=== PATIENT | female | born 1970 | race Caucasian/White ===

== ENCOUNTER 2017-01-07 19:10 | Emergency (ER) | payer BC ==
[~2017-01-07] VITALS: Ht 165.1 cm; Wt 108.5 kg
[~2017-01-07 19:10] MED LIST: CLR10 PO; IBUP-1050 PO; TRIA1SPR4 NAE
[2017-01-07 19:13] VITALS: TEMP 36.9; Ht 165.1 cm; Wt 108.5 kg
[2017-01-07] MEDS ORDERED: XYLOCAINE 1%/SOD BICARB 20 ML VIAL INFIL ONE (20:15)
[2017-01-07] MEDS ORDERED: TOBRSUS33 OPB (20:28)
[2017-01-07] MEDS ORDERED: MELO15TA4 PO (20:28)
--- NOTE | 2017-01-07 20:44 | EMERGENCY ROOM VISIT NOTE ---
ED Visit Note First contact with patient: 20:12 CHIEF COMPLAINT: Right fifth Finger laceration HISTORY OF PRESENT ILLNESS: This 46-year-old female patient cut the right fifth finger just prior to arrival when she was pushing a trash bag down into the garbage can. The patient states something sharp came through the bag and cut her right fifth finger. The bleeding has stopped. Denies weakness or numbness of the finger. The patient's tetanus is up-to-date. REVIEW OF SYSTEMS: 6 system review was performed and was negative unless stated otherwise in history of present illness. PMH: The patient is healthy; bowel syndrome, cholecystectomy, asthma, , ovarian cyst rupture, hysterectomy, hernia repair SOCIAL HISTORY: Patient lives with her family. The patient denies tobacco use but admits to occasional alcohol use. PHYSICAL EXAM: Vital Signs: Were reviewed Reviewed Nurse's notes. GENERAL: 46- year-old white female appears in no acute distress. MENTAL Status: Alert and oriented 3. RIGHT FIFTH FINGER: There is a 1.5 cm long laceration on the palmar aspect of the proximal phalanx. The edges gape apart with traction. There is no foreign material in the wound and it looks clean. There is no bleeding. No deep structures such as tendons or nerves are seen in the base of the wound. Extension of the finger is full and strong. EMERGENCY DEPARTMENT COURSE: The patient was evaluated. Wound Repair: Complexity: Basic. Verbal consent was obtained after the risks and benefits were explained, including but not limited to bleeding, scarring, infection, pain, and bone/joint /nerve damage. The skin was prepped with betadine and a sterile field set. The wound was anesthetized with 2.0 ml of 1% buffered lidocaine. With direct pressure the bleeding subsided. Copious irrigation was performed using sterile saline. The wound was explored for foreign bodies and none found. Debridement was not performed. The wound edges were approximated using 5-0 Ethilon with 5 simple interrupted sutures. Hemostasis and excellent approximation was achieved. Antibacterial ointment and a sterile dressing applied. Detailed wound care instructions and signs and symptoms of infection reviewed with the patient. No complications and the patient tolerated the procedure well. DIAGNOSIS: 1.5 cm right fifth Finger laceration DISCHARGE INSTRUCTIONS & TREATMENT: Watch the area carefully for signs of infection such as redness, swelling, or tenderness. Any signs of infection, follow-up family doctor. Antibiotic ointment and a bandage for 2 days. Keep wound dry for 24 hours. Suture removal in 8-10 days. Current/Historical Medications Scheduled Meloxicam (Meloxicam), 15 MG PO DAILY Tobramycin-Dexamethasone (Tobradex 0.3% Oph Susp), 1 DROP OPB BID Allergies Coded Allergies: Ketorolac Tromethamine (Verified Allergy, Severe, closes throat up, 04/13/16 ) Trazodone (Verified Allergy, Severe, "turned me purple", 04/13/16) Sulfa Antibiotics (Verified Allergy, Intermediate, hives, 04/13/16) Sulfamethoxazole w/Trimethoprim (Verified Allergy, Unknown, HIVES, 04/13/16) Vital Signs Date Time Temp Pulse Resp B/P Pulse Ox O2 Delivery O2 Flow Rate FiO2 01/07/17 19:13 36.9 101 18 143/72 99 Room Air Departure Information Referrals Pedro Pablo Blanton M.D. (PCP) Patient Instructions [facility]
[2017-01-07 21:06] VITALS: BP 122/70; PULSE 70; O2SAT 99
== END 2017-01-07 21:06 | disposition home or self-care (01) ==
LOC: C.EDB 19:10 → C.EDD 21:06
DX: S61.216A Laceration without foreign body of right little finger without damage to nail, initial encounter (principal); W45.8XXA Other foreign body or object entering through skin, initial encounter; J45.909 Unspecified asthma, uncomplicated; Z90.710 Acquired absence of both cervix and uterus

== ENCOUNTER → 2018-01-09 | Outpatient (CLI) | payer OTHER ==
[~2018-01-09] MED LIST changes: -CLR10 PO; -IBUP-1050 PO; +MELO-83 PO; +TOBRSUS33 OPB; -TRIA1SPR4 NAE
== END | disposition home or self-care (01) ==
LOC: C.LABSPEC 17:35
PROVIDERS: ATTEND Obstetrics & Gynecology
DX: N94.89 Other specified conditions associated with female genital organs and menstrual cycle (principal)

== ENCOUNTER 2018-11-21 01:54 | Observation (INO) ==
[2018-11-21] MEDS ORDERED: NITROGLYCERIN 2% OINTMENT 30GM TUBE EXT ONE (02:12)
[2018-11-21] MEDS ORDERED: ASPIRIN CHEW 324 MG PO STA (02:12)
[2018-11-21] MEDS ORDERED: SODIUM CHLORIDE 0.9% 1000ML 1,000 ML IV SCH (02:15)
[2018-11-21 02:25] LABS: Basophils # (auto) 0.04 K/uL (0-0.2); Basophils % (auto) 0.4 %; Eosinophils # (auto) 0.31 K/uL (0-0.5); Eosinophils % (auto) 3.2 %; Hematocrit (blood only) 44.6 % (37-47); Hemoglobin 15.2 g/dL (12.0-16.0); Immature Granulocytes # (auto) 0.04 K/uL (0.00-0.02); Immature Granulocytes % (auto) 0.4 %; Lymphocytes # (auto) 4.06 K/uL (1.2-3.4); Lymphocytes % (auto) 41.3 %; Mean Corpuscular Hgb Conc 34.1 g/dL (32-36); Mean Corpuscular Volume 87.5 fL (80-100); Mean Platelet Volume 10.7 fL (7.4-10.4); Monocytes % (auto) 9.1 %; Neutrophils # (auto) 4.49 K/uL (1.4-6.5); Neutrophils % (auto) 45.6 %; Platelet Count 217 K/uL (130-400); RDW Coefficient of Variation 13.4 % (11.5-14.5); RDW Standard Deviation 42.9 fL (36.4-46.3); White Blood Count 9.84 K/uL (4.8-10.8)
[2018-11-21] MEDS ORDERED: ONDANSETRON INJ 2 MG/ML 2 ML VIAL IV STA (02:44)
[2018-11-21] MEDS ORDERED: MoRPHine SULFATE 4 MG/ML 1 ML CARP\\VIAL IV STA (02:44)
[2018-11-21 02:54] LABS: Alanine Aminotransferase 33 U/L (12-78); Albumin Level 3.6 gm/dl (3.4-5.0); BUN Creatinine Ratio 27.4 (10-20); Blood Urea Nitrogen 22 mg/dl (7-18); Calcium 8.6 mg/dl (8.5-10.1); Carbon Dioxide 27 mmol/L (21-32); Chloride 107 mmol/L (98-107); Creatinine Clr Calc Pharmacy 98.3 ml/min; Est GFR (African American) 99.5; Est GFR (Non-African American) 85.8; Glucose 90 mg/dl (70-99); Sodium 140 mmol/L (136-145)
[2018-11-21 03:14] LABS: Albumin Globulin Ratio 0.9 (0.9-2); Alkaline Phosphatase 82 U/L (45-117); Bilirubin,Total 0.3 mg/dl (0.2-1); Total Protein 7.6 gm/dl (6.4-8.2); Troponin I < 0.015 ng/ml (0-0.045)
[2018-11-21 03:20] LABS: Potassium 3.8 mmol/L (3.5-5.1)
[2018-11-21 03:21] LABS: Appearance Urine Clear (Clear); Bilirubin Urine Negative (Negative); Blood Urine Negative (Negative); Color Urine Yellow; Glucose Urine UA Negative (Negative); Ketones Urine Negative (Negative); Leukocyte Esterase Urine Negative (Negative); Nitrite Urine Negative (Negative); Protein Urine Negative (Negative); Urobilinogen Urine Negative (Negative); pH Urine 6.5 (4.5-7.5)
[2018-11-21 03:23] LABS: D Dimer 220 ug/L FEU (0-500); Partial Thromboplastin Time 26.5 Seconds (21.0-31.0); Prothrombin Time 10.5 Seconds (9.0-12.0)
--- NOTE | 2018-11-21 04:15 | Emergency Department Note ---
History of Present Illness General Chief complaint: Chest Pain Stated complaint: chest pain Time Seen by Provider: 11/21/18 02:01 History of Present Illness Maximum Pain Intensity: 8 This is a 48-year-old female presenting to the emergency department for evaluation of left-sided chest pain that woke her from sleep approximately 1 hour prior to arrival. The patient states that approximately 1 AM she awoke with her symptoms that she is describing as a heaviness, "like a brick is sittin g on my chest". The patient states the heaviness persists into her left side back and shoulder but does not otherwise radiate. She does feel somewhat short of breath. She has not had lightheadedness or dizziness. No fevers or chills recently. She has not taken anything [id number] for her symptoms. The patient herself does not have a history of cardiopulmonary disease, but does report a strong family history with both her mother and father having heart attacks in their 60s. The patient rates her discomfort an 8/10. She does not report abdominal discomfort. She has not taken anything [id number] for her pain, and has not had symptoms like this in the past. She denies recent travel history. Home Medications Home Medications Medication Instructions Recorded Confirmed Type calcium carbonate-vitamin D3 1 tab PO DAILY 11/21/18 11/21/18 History [Calcium 600 + D(3)] loratadine-pseudoephedrine 1 tab PO DAILY PRN 11/21/18 11/21/18 History [Claritin-D 24 Hour] multivitamin [Multiple Vitamins] 1 tab PO DAILY 11/21/18 11/21/18 History Allergies Allergy/AdvReac Type Severity Reaction Status Date / Time ketorolac Allergy Severe closes Verified 11/21/18 02:32 throat up trazodone Allergy Severe "turned me Verified 11/21/18 02:32 purple" Sulfa (Sulfonamide Allergy Intermediate hives Verified 11/21/18 02:32 Antibiotics) Bactrim Allergy Unknown HIVES Verified 04/13/16 06:45 sulfamethoxazole Allergy Unknown HIVES Verified 11/21/18 02:32 trimethoprim Allergy Unknown HIVES Verified 11/21/18 02:32 Past Med/Surg History Medical History IBS (irritable bowel syndrome) Family history of heart disease No significant past surgical history Social History Feels Safe at Home: Yes Smoking Status: Never smoker Review of Systems A total of 10 systems reviewed and were otherwise negative Physical Exam Vital Signs Vital Signs - 24 hr 11/21/18 01:56 11/21/18 02:23 11/21/18 03:30 Temperature 36.5 C Temperature Source Oral Sepsis Recent Fever Within 48 Hours No Sepsis Action Taken by Nursing No Action Required Pulse Rate 73 Pulse Rate [Right Finger] 58 L 56 L Pulse Rhythm [Right Finger] Regular Pulse Strength [Right Finger] Normal Respiratory Rate 16 18 18 Respiratory Effort / Characteristics Non-Labored Spontaneous Non-Labored Spontaneous Non-Labored Spontaneous Respiratory Depth Normal Normal Normal Respiratory Pattern Regular Regular Regular Blood Pressure 134/89 Blood Pressure [Right Arm] 118/81 106/70 Blood Pressure Mean 104 Blood Pressure Mean [Right Arm] 93 82 Blood Pressure Position Sitting Blood Pressure Position [Right Arm] Lying Lying Pulse Oximetry 99 96 95 Oxygen Delivery Method Room Air Room Air Room Air VITALS: Vitals are noted on the nurse's note and reviewed by myself. Vital signs stable. GENERAL: Well-developed, well-nourished, white female who appears mildly uncomfortable secondary to her stated complaint. EARS: External ear normal. External auditory canals clear, tympanic membranes pearly treviño without erythema or effusion bilaterally. EYES: Pupils equal round and reactive to light and accommodation. Conjunctivae without injection, sclerae without icterus. Extraocular movements intact. NOSE: Patent, turbinates without inflammation or discharge. MOUTH: Mucous membranes moist. Tonsils are not enlarged. Pharynx without erythema, blood, or exudate. Uvula midline. Airway patent. NECK: Supple without nuchal rigidity. No lymphadenopathy. No thyromegaly. Cervical spine is nontender. HEART: Regular rate and rhythm without murmurs gallops or rubs. LUNGS: Clear to auscultation bilaterally without wheezes, rales or rhonchi. No retractions or accessory muscle use. CHEST WALL: No reproducible chest wall tenderness. ABDOMEN: Positive normal bowel sounds x 4. Soft, nontender, without masses or organomegaly. No guarding or rebound tenderness. MUSCULOSKELETAL: No muscle atrophy, erythema, or edema noted. Full range of motion in all extremities. No tenderness to palpation. No significant lower ex tremity edema or posterior calf tenderness NEURO: Patient was alert and oriented to person place and time. CN II through XII grossly intact. SKIN: The skin was without rashes, erythema, edema, or bruising. Capillary refill less than 2 seconds. Course Administered Medications Discontinued Medications Aspirin (Aspirin) 324 mg PO NOW STA Stop: 11/21/18 02:13 Last Admin: 11/21/18 02:18 Dose: 324 mg Documented by: [id number] Sodium Chloride (Nss 1000ml) 1,000 mls @ 999 mls/hr IV .Q1H1M DENIA Stop: 11/21/18 03:15 Last Infusion: 11/21/18 03:23 Dose: 0 mls/hr Documented by: [id number] Admin: 11/21/18 02:19 Dose: 999 mls/hr Documented by: [id number] Morphine Sulfate (Morphine Sulfate) 4 mg IV NOW STA Stop: 11/21/18 02:45 Last Admin: 11/21/18 02:47 Dose: 4 mg Documented by: [id number] Nitroglycerin (Nitro-Bid 2%) 1 inch EXT NOW ONE Stop: 11/21/18 02:13 Last Admin: 11/21/18 02:18 Dose: 1 inch Documented by: [id number] Ondansetron HCl (Zofran) 4 mg IV NOW STA Stop: 11/21/18 02:45 Last Admin: 11/21/18 02:46 Dose: 4 mg Documented by: [id number] Medical Decision Making Differential Diagnosis Differential diagnosis includes, but is not limited to: Myocardial infarction, dysrhythmia, pericarditis, pneumothorax, aortic aneurysm/dissection, DVT/PE, anxiety, GERD, PUD, electrolyte imbalance, thyroid disorder, pneumonia, bronchitis, pancreatitis, and others Laboratory Data Result diagrams: 11/21/18 02:10 11/21/18 02:54 Lab Results 11/21/18 11/21/18 11/21/18 Range/Units 02:10 02:10 02:10 WBC 9.84 (4.8-10.8) K/uL RBC 5.10 (4.2-5.4) M/uL Hgb 15.2 (12.0-16.0) g/dL Hct 44.6 (37-47) % MCV 87.5 (80-100) fL MCH 29.8 (25-34) pg MCHC 34.1 (32-36) g/dL RDW Std Deviation 42.9 (36.4-46.3) fL RDW Coeff of [place] 13.4 (11.5-14.5) % Plt Count 217 (130-400) K/uL MPV 10.7 H (7.4-10.4) fL Immature Gran % (Auto) 0.4 % Neut % (Auto) 45.6 % Lymph % (Auto) 41.3 % [place] % (Auto) 9.1 % Eos % (Auto) 3.2 % Baso % (Auto) 0.4 % Immature Gran # (Auto) 0.04 H (0.00-0.02) K/uL Neut # (Auto) 4.49 (1.4-6.5) K/uL Lymph # (Auto) 4.06 H (1.2-3.4) K/uL [place] # (Auto) 0.90 H (0.11-0.59) K/uL Eos # (Auto) 0.31 (0-0.5) K/uL Baso # (Auto) 0.04 (0-0.2) K/uL PT Cancelled INR Cancelled APTT Cancelled PTT Ratio Cancelled D-Dimer Cancelled Sodium 140 (136-145) mmol/L Potassium (3.5-5.1) mmol/L Chloride 107 (98-107) mmol/L Carbon Dioxide 27 (21-32) mmol/L Anion Gap 6.0 (3-11) BUN 22 H (7-18) mg/dl Creatinine 0.82 (0.6-1.2) mg/dl Est Cr Clr Drug Dosing 98.3 ml/min Est GFR ( Amer) 99.5 Est GFR (Non-Af Amer) 85.8 BUN/Creatinine Ratio 27.4 H (10-20) Glucose 90 (70-99) mg/dl Calcium 8.6 (8.5-10.1) mg/dl Total Bilirubin 0.3 (0.2-1) mg/dl AST (15-37) U/L ALT 33 (12-78) U/L Alkaline Phosphatase 82 (45-117) U/L Troponin I < 0.015 (0-0.045) ng/ml Total Protein 7.6 (6.4-8.2) gm/dl Albumin 3.6 (3.4-5.0) gm/dl Globulin 4.0 (2.5-4.0) gm/dl Albumin/Globulin Ratio 0.9 (0.9-2) Lipase 145 (73-393) U/L TSH 1.990 (0.300-4.500) uIu/ml Urine Color Urine Appearance (Clear) Urine pH (4.5-7.5) Ur Specific [place] (1.000-1.030) Urine Protein (Negative) Urine Glucose (UA) (Negative) Urine Ketones (Negative) Urine Blood (Negative) Urine Nitrite (Negative) Urine Bilirubin (Negative) Urine Urobilinogen (Negative) Ur Leukocyte Esterase (Negative) 11/21/18 11/21/18 11/21/18 Range/Units 02:54 02:54 03:05 WBC (4.8-10.8) K/uL RBC (4.2-5.4) M/uL Hgb (12.0-16.0) g/dL Hct (37-47) % MCV (80-100) fL MCH (25-34) pg MCHC (32-36) g/dL RDW Std Deviation (36.4-46.3) fL RDW Coeff of [place]iden (11.5-14.5) % Plt Count (130-400) K/uL MPV (7.4-10.4) fL Immature Gran % (Auto) % Neut % (Auto) % Lymph % (Auto) % [place] % (Auto) % Eos % (Auto) % Baso % (Auto) % Immature Gran # (Auto) (0.00-0.02) K/uL Neut # (Auto) (1.4-6.5) K/uL Lymph # (Auto) (1.2-3.4) K/uL [place] # (Auto) (0.11-0.59) K/uL Eos # (Auto) (0-0.5) K/uL Baso # (Auto) (0-0.2) K/uL PT 10.5 INR 1.0 APTT 26.5 PTT Ratio 1.0 D-Dimer 220 Sodium (136-145) mmol/L Potassium 3.8 (3.5-5.1) mmol/L Chloride (98-107) mmol/L Carbon Dioxide (21-32) mmol/L Anion Gap (3-11) BUN (7-18) mg/dl Creatinine (0.6-1.2) mg/dl Est Cr Clr Drug Dosing ml/min Est GFR ( Amer) Est GFR (Non-Af Amer) BUN/Creatinine Ratio (10-20) Glucose (70-99) mg/dl Calcium (8.5-10.1) mg/dl Total Bilirubin (0.2-1) mg/dl AST 16 (15-37) U/L ALT (12-78) U/L Alkaline Phosphatase (45-117) U/L Troponin I (0-0.045) ng/ml Total Protein (6.4-8.2) gm/dl Albumin (3.4-5.0) gm/dl Globulin (2.5-4.0) gm/dl Albumin/Globulin Ratio (0.9-2) Lipase (73-393) U/L TSH (0.300-4.500) uIu/ml Urine Color Yellow Urine Appearance Clear (Clear) Urine pH 6.5 (4.5-7.5) Ur Specific [place] 1.010 (1.000-1.030) Urine Protein Negative (Negative) Urine Glucose (UA) Negative (Negative) Urine Ketones Negative (Negative) Urine Blood Negative (Negative) Urine Nitrite Negative (Negative) Urine Bilirubin Negative (Negative) Urine Urobilinogen Negative (Negative) Ur Leukocyte Esterase Negative (Negative) ECG Data Additional Comments: Normal sinus rhythm with sinus arrhythmia @66bpm No Acute ST elevation Normal ECG When compared with ECG of 02-MAR-2016 07:53, No significant change was found MDM Narrative Physical exam and history were performed. Nursing notes, EMR, and Medication List were personally reviewed. Patient appears to have left-sided chest pain bringing her to the emergency department. EKG was performed and was normal sinus rhythm at 66 bpm. IV access was established and labs were obtained. The patient was hydrated with normal saline. She was given oral aspirin 324 mg as well as 1 inch Nitropaste. She was placed on the bone char operator. Chest x-ray was performed. The patient's blood work is as above and was reviewed. She does not have a significantly elevated white blood cell count, gross anemia, bandemia, or significant electrolyte imbalance. Lipase and transaminases are not diagnostic. INR is 1.0. Troponin and d-dimer x1 are both negative. TSH shows euthyroid state. Urine is negative for infection. Xray was reviewed by myself and my attending showing no acute process. Official radiology reading is pending at this time. On reevaluation the patient stated that her discomfort was worsened after treatment. She does not appear in worsening distress. The patient was given 4 mg IV morphine and 4 mg IV Zofran. This did improve her pain from an 8 to a 4, and she did clinically appear much more comfortable. I discussed options of care with the patient, who does not feel comfortable for discharge home. This does seem reasonable as she has persistent left-sided chest pain and a poor family history of cardiovascular disease. The case was discussed with the on-call hospitalist who agreed to evaluate the patient here in the department. Please see their dictation for further patient course, plan, and disposition. The chart was completed utilizing [employer] Speech Voice Recognition Software. Grammatical errors, random word insertions, pronoun errors, and incomplete sentences are an occasional consequence of this system due to software limitations, ambient noise, and hardware issues. Any formal questions or concerns about the content, text, or information contained within the body of this dictation should be directly addressed to the provider for clarification. . Impression & Plan Atypical chest pain Discharge Plan Visit Data Chief Complaint: Chest Pain Stated Complaint: chest pain ED Provider: Jesika Hayden ED Midlevel Provider: Gabriel England Discharge Problem: Atypical chest pain Forms Stand Alone Forms: Call Back Authorization, [facility] Prescriptions Prescriptions: No Action multivitamin [Multiple Vitamins] Tablet 1 tab PO DAILY RF: 0 loratadine-pseudoephedrine [Claritin-D 24 Hour] 10-240 mg Tablet Extended Release 24 Hr 1 tab PO DAILY PRN (Reason: Allergy Symptoms) RF: 0 calcium carbonate-vitamin D3 [Calcium 600 + D(3)] 600 mg(1,500mg) -400 unit Tablet 1 tab PO DAILY RF: 0 Referrals Referrals: Pedro Pablo Blanton MD [Primary Care Provider] -
--- NOTE | 2018-11-21 04:55 | History & Physical Report ---
Date of Service November 21, 2018 Assessment & Plan (1) Left sided chest pain: Left-sided chest pain that awoke her from sleep-- The patient will be admitted to telemetry for serial cardiac enzymes, serial EKG's, cardiac rhythm monitoring and a 2-D echocardiogram with Dopplers. Main risk factors are that of family history of mother and father with cardiac and neurologic disease, her sedentary lifestyle and obesity. Heart rate is in the 50s, and systolic blood pressure is in the low 100s. Continue aspirin 81 mg daily. Present on Admission?: Yes (2) Family history of coronary artery disease in father: See above Present on Admission?: Yes (3) Family history of stroke or transient ischemic attack in mother: Risk factor modification for cardiovascular disease will encompass that of neurologic disease as well. Present on Admission?: Yes (4) Sinus arrhythmia seen on electrocardiogram: She was informed of the benign nature. Present on Admission?: Yes (5) Obesity (BMI 35.0-39.9 without comorbidity): She has had a 50 pound weight loss in the past year with modification of diet, and was encouraged continue to work. Present on Admission?: Yes (6) IBS (irritable bowel syndrome): She reports that her irritable bowel symptoms have been significantly improved with her dietary change and 50 pound weight loss. Present on Admission?: Yes History of Present Illness Chief Complaint: Patient reports that she awoke with left upper chest wall discomfort. Primary Care Provider: Pedro Pablo Blanton MD The patient is a 48-year-old female, who is been in her usual state of health until she awoke this morning from sleep with left upper chest heaviness/discomfort. She has not had this type of symptoms in the past. She has a family history of father and mother have had heart attacks and strokes in their 60s. She has not had any change in her usual activity pattern eating or drinking pattern. She has been on healthy diet, and has lost 50 pounds over the past year, which is also helped her irritable bowel syndrome. Allergies Allergy/AdvReac Type Severity Reaction Status Date / Time ketorolac Allergy Severe closes Verified 11/21/18 02:32 throat up trazodone Allergy Severe "turned me Verified 11/21/18 02:32 purple" Sulfa (Sulfonamide Allergy Intermediate hives Verified 11/21/18 02:32 Antibiotics) Bactrim Allergy Unknown HIVES Verified 04/13/16 06:45 sulfamethoxazole Allergy Unknown HIVES Verified 11/21/18 02:32 trimethoprim Allergy Unknown HIVES Verified 11/21/18 02:32 Home Medications Home Medications Medication Instructions Recorded Confirmed Type calcium carbonate-vitamin D3 1 tab PO DAILY 11/21/18 11/21/18 History [Calcium 600 + D(3)] loratadine-pseudoephedrine 1 tab PO DAILY PRN 11/21/18 11/21/18 History [Claritin-D 24 Hour] multivitamin [Multiple Vitamins] 1 tab PO DAILY 11/21/18 11/21/18 History Past Med/Surg History Medical History IBS (irritable bowel syndrome) Family history of heart disease No significant past surgical history Social History Feels Safe at Home: Yes Smoking Status: Never smoker Review of Systems The patient denies palpitations, shortness of breath, dyspnea on exertion, cough, lower extremity swelling, sore throat, fevers, chills, sweats, fatigue, nausea, vomiting, diarrhea , constipation, abdominal pain, pelvic pain, blood in urine or stool, dysuria, urinary frequency or urgency, lightheadedness, dizziness, headache, memory loss, loss of consciousness, rash, abnormal bruising or bleeding, imbalance, focal or generalized weakness, numbness or tingling in arms or legs, generalized arthralgias or myalgias, back or neck pain, or night sweats. The review of systems is otherwise negative other than for that already noted above, and at least 10 systems have been reviewed. Physical Exam Vital Signs (Past 24 Hours): Last Vital Signs Temp 36.5 C 11/21/18 01:56 Pulse 53 L 11/21/18 04:00 Resp 18 11/21/18 04:00 BP 107/69 11/21/18 04:00 Pulse Ox 96 11/21/18 04:00 Physical Exam: The patient is awake, alert and oriented 3, well developed and well nourished, normocephalic and atraumatic, lying in bed and in no acute distress. HEENT--PERRL, EOMI, mucous membranes and oropharynx normal. Tenderness noted over left mastoid process Neck--turning left to right is limited by pain along her left mastoid. No JVD. No bruits. Thyroid normal, trachea midline, no adenopathy. Heart--normal S1 and S2. No murmurs, rubs or gallops. Lungs/chest wall--clear bilaterally, no respiratory distress, no accessory muscle use. Reproducible pain over left mid sternal costal junction and left lateral rib cage. Abdomen--normal bowel sounds and soft. Nontender. Nondistended. Obese Extremities--no cyanosis or clubbing. No edema. There are good distal pulses b/l. Dermatologic--normal skin turgor, normal color, no abnormal lymph nodes, no rash. Neurologic--cranial nerves II through XII grossly intact. Rheumatologic--normal range of motion. Psychiatric--normal affect. Results & Data Laboratory Results Laboratory Results WBC 9.84 K/uL (4.8-10.8) 11/21/18 02:10 RBC 5.10 M/uL (4.2-5.4) 11/21/18 02:10 Hgb 15.2 g/dL (12.0-16.0) 11/21/18 02:10 Hct 44.6 % (37-47) 11/21/18 02:10 MCV 87.5 fL (80-100) 11/21/18 02:10 MCH 29.8 pg (25-34) 11/21/18 02:10 MCHC 34.1 g/dL (32-36) 11/21/18 02:10 RDW Std Deviation 42.9 fL (36.4-46.3) 11/21/18 02:10 RDW Coeff of Kaiden 13.4 % (11.5-14.5) 11/21/18 02:10 Plt Count 217 K/uL (130-400) 11/21/18 02:10 MPV 10.7 fL (7.4-10.4) H 11/21/18 02:10 Immature Gran % (Auto) 0.4 % 11/21/18 02:10 Neut % (Auto) 45.6 % 11/21/18 02:10 Lymph % (Auto) 41.3 % 11/21/18 02:10 [place] % (Auto) 9.1 % 11/21/18 02:10 Eos % (Auto) 3.2 % 11/21/18 02:10 Baso % (Auto) 0.4 % 11/21/18 02:10 Immature Gran # (Auto) 0.04 K/uL (0.00-0.02) H 11/21/18 02:10 Neut # (Auto) 4.49 K/uL (1.4-6.5) 11/21/18 02:10 Lymph # (Auto) 4.06 K/uL (1.2-3.4) H 11/21/18 02:10 [place] # (Auto) 0.90 K/uL (0.11-0.59) H 11/21/18 02:10 Eos # (Auto) 0.31 K/uL (0-0.5) 11/21/18 02:10 Baso # (Auto) 0.04 K/uL (0-0.2) 11/21/18 02:10 PT 10.5 Seconds (9.0-12.0) 11/21/18 02:54 INR 1.0 (0.9-1.1) 11/21/18 02:54 APTT 26.5 Seconds (21.0-31.0) 11/21/18 02:54 PTT Ratio 1.0 11/21/18 02:54 D-Dimer 220 ug/L FEU (0-500) 11/21/18 02:54 Sodium 140 mmol/L (136-145) 11/21/18 02:10 Potassium 3.8 mmol/L (3.5-5.1) 11/21/18 02:54 Chloride 107 mmol/L (98-107) 11/21/18 02:10 Carbon Dioxide 27 mmol/L (21-32) 11/21/18 02:10 Anion Gap 6.0 (3-11) 11/21/18 02:10 BUN 22 mg/dl (7-18) H 11/21/18 02:10 Creatinine 0.82 mg/dl (0.6-1.2) 11/21/18 02:10 Est Cr Clr Drug Dosing 98.3 ml/min 11/21/18 02:10 Est GFR ( Amer) 99.5 11/21/18 02:10 Est GFR (Non-Af Amer) 85.8 11/21/18 02:10 BUN/Creatinine Ratio 27.4 (10-20) H 11/21/18 02:10 Glucose 90 mg/dl (70-99) 11/21/18 02:10 Calcium 8.6 mg/dl (8.5-10.1) 11/21/18 02:10 Total Bilirubin 0.3 mg/dl (0.2-1) 11/21/18 02:10 AST 16 U/L (15-37) 11/21/18 02:54 ALT 33 U/L (12-78) 11/21/18 02:10 Alkaline Phosphatase 82 U/L (45-117) 11/21/18 02:10 Troponin I < 0.015 ng/ml (0-0.045) 11/21/18 02:10 Total Protein 7.6 gm/dl (6.4-8.2) 11/21/18 02:10 Albumin 3.6 gm/dl (3.4-5.0) 11/21/18 02:10 Globulin 4.0 gm/dl (2.5-4.0) 11/21/18 02:10 Albumin/Globulin Ratio 0.9 (0.9-2) 11/21/18 02:10 Lipase 145 U/L (73-393) 11/21/18 02:10 TSH 1.990 uIu/ml (0.300-4.500) 11/21/18 02:10 Urine Color Yellow 11/21/18 03:05 Urine Appearance Clear (Clear) 11/21/18 03:05 Urine pH 6.5 (4.5-7.5) 11/21/18 03:05 Ur Specific [place] 1.010 (1.000-1.030) 11/21/18 03:05 Urine Protein Negative (Negative) 11/21/18 03:05 Urine Glucose (UA) Negative (Negative) 11/21/18 03:05 Urine Ketones Negative (Negative) 11/21/18 03:05 Urine Blood Negative (Negative) 11/21/18 03:05 Urine Nitrite Negative (Negative) 11/21/18 03:05 Urine Bilirubin Negative (Negative) 11/21/18 03:05 Urine Urobilinogen Negative (Negative) 11/21/18 03:05 Ur Leukocyte Esterase Negative (Negative) 11/21/18 03:05 Code Status & VTE Plan Code Status Full code VTE Prophylaxis Plan VTE Prophylaxis will be ordered: Yes
--- NOTE | 2018-11-21 07:17 | XRay Report ---
XR chest 1V portable HISTORY: Atypical chest pain COMPARISON: None. FINDINGS: The lungs are clear. Cardiac silhouette is normal in size. No pleural effusions. No pneumot horax. IMPRESSION: No acute process. Electronically signed by: Danny Peres M.D. 11/21/2018 7:15 AM
[2018-11-21 08:35] LABS: Chol HDL Ratio 4; Cholesterol 155 mg/dl (0-200); HDL Cholesterol 39 mg/dl; LDL Cholesterol Calculated 95 mg/dl; Triglycerides 107 mg/dl (0-150); VLDL Cholesterol 21 mg/dl
[2018-11-21 10:17] LABS: Estimated Average Glucose 108 mg/dl; Hemoglobin A1C 5.4 % (4.5-5.6)
[2018-11-21] MEDS ORDERED: ACETAMINOPHEN 500 MG TAB PO PRN (10:40)
[2018-11-21] MEDS ORDERED: PERFLUTREN LIPID MICROSPHERE (DEFINITY) IV ONE (15:22)
--- NOTE | 2018-11-21 16:33 | Discharge Summary ---
Date of Service November 21, 2018 Admission HPI Per Admitting Provider The patient is a 48-year-old female, who is been in her usual state of health until she awoke this morning from sleep with left upper chest heaviness/discomfort. She has not had this type of symptoms in the past. She has a family history of father and mother have had heart attacks and strokes in their 60s. She has not had any change in her usual activity pattern eating or drinking pattern. She has been on healthy diet, and has lost 50 pounds over the past year, which is also helped her irritable bowel syndrome. Admission Exam Per Admitting Provider The patient is awake, alert and oriented 3, well developed and well nourished, normocephalic and atraumatic, lying in bed and in no acute distress. HEENT--PERRL, EOMI, mucous membranes and oropharynx normal. Tenderness noted over left mastoid process Neck--turning left to right is limited by pain along her left mastoid. No JVD. No bruits. Thyroid normal, trachea midline, no adenopathy. Heart--normal S1 and S2. No murmurs, rubs or gallops. Lungs/chest wall--clear bilaterally, no respiratory distress, no accessory muscle use. Reproducible pain over left mid sternal costal junction and left lateral rib cage. Abdomen--normal bowel sounds and soft. Nontender. Nondistended. Obese Extremities--no cyanosis or clubbing. No edema. There are good distal pulses b/l. Dermatologic--normal skin turgor, normal color, no abnormal lymph nodes, no rash. Neurologic--cranial nerves II through XII grossly intact. Rheumatologic--normal range of motion. Psychiatric--normal affect. Principal Diagnosis Chest pain Discharge Exam Constitutional WD/WN, vitals as above cooperative and comfortable Eyes + anicteric sclerae and EOM intact bilaterally Neck normal visual inspection and trachea midline Respiratory normal respiratory effort, lungs clear to auscultation Cardiovascular RRR, no murmur, no edema no rash on inspection Gastrointestinal (Abdomen) Inspection/Auscultation: normal bowel sounds; abdomen not distended Percussion/Palpation: abdomen soft; abdomen nontender, no guarding and abdomen not rigid Musculoskeletal Head/Neck/Chest: normocephalic and head atraumatic Skin no rashes, warm and dry Neurologic moves all extremities and awake Psychiatric A+Ox3, euthymic affect Discharge Data Allergies Allergy/AdvReac Type Severity Reaction Status Date / Time ketorolac Allergy Severe closes Verified 11/21/18 02:32 throat up trazodone Allergy Severe "turned me Verified 11/21/18 02:32 purple" Sulfa (Sulfonamide Allergy Intermediate hives Verified 11/21/18 02:32 Antibiotics) Bactrim Allergy Unknown HIVES Verified 04/13/16 06:45 sulfamethoxazole Allergy Unknown HIVES Verified 11/21/18 02:32 trimethoprim Allergy Unknown HIVES Verified 11/21/18 02:32 Consultations 11/21/18 04:02 ED Decision to Admit Stat 11/21/18 05:45 Consult Case Management - Discharge Planning Routine Hospital Course (1) Left sided chest pain: Chest pressure has been persistent throughout admission, shortness of breath has resolved. Only made better with morphine, non-positional, was not made better with ASA or NTG in ED. Trop negative x2 D-dimer negative, no clinical signs for concern for Pulmonary Embolism Cardiac stress test was performed here and was negative. ECG did not show any signs of ischemia. No signs for infectious causes such as a pneumonia causing symptoms. TSH here was within normal limits 1.990 UA in ED was negative CXR in ED showed no acute process Modifiable risk factors were worked up * Hgb A1C 5.4%, within normal limits * Lipid panel performed with chi 107 (WNL), Cholesterol 155 (WNL), LDL 95, VLDL 21, HDL 39 and are unremarkable. Has mother and father with CAD but both parents did not have early onset with mom in 70s and dad in 60s. Both parents were smokers and had DM. Unsure of etiology. Not reproducible on exam to suggest costrochondritis. States she has been under increase amount of stress and could be anxiety related. Considered gastritis as a potential cause with possible referring of pain. No recent sickness/illness to suggest consideration splenomegaly causing referred pain. Per review of records, she has a history of asthma with normal PFTs, could be reactive airway disease as she has not had her allergy medication in several days and could be allergen driven. Record review mentioned maybe an episode of pericarditis in 2002, but had extensive workup which was negative for SLE. (2) Obesity (BMI 35.0-39.9 without comorbidity): Has done a great job with weight loss via lifestyle modifications of 50 pounds over the past year. Total Time Total Time Spent Total Time Spent (In Minutes): >30 Total Time Includes: Examination of the Patient, Discharge Planning and M edication Reconciliation Discharge Plan Discharge Items Patient Disposition: Home - Self-Care Reason For Visit: CHEST PAIN Discharge Diagnosis: Chest pain Discharge Goals: Decrease discomfort and Therapeutic intervention Activity: Per 'Additional Instructions' section Non-emergency contact: Primary Care Provider Call non-emergency contact if: you have any medication questions, your symptoms worsen and your pain is concerning for you Follow-up/Referrals: Pedro Pablo Blanton MD [Primary Care Provider] - 11/30/18 4:15 pm (Please, follow up with Dr. Pedro Pablo Blanton on November 30 at 4:15 pm. *If you need to change this appointment, call the office at [phone].) Diet: Regular Addtl Provider Instructions: You were admitted for chest pain and had a full workup for potential cardiac cause. Your EKG which shows electrical conduction of the heart was normal. We tested for an enzyme in your blood that is released with heart damage, Troponin, which was negative. You had a cardiac stress test which was negative. You also had a workup for any modifiable risks factors for heart disease which included: You had a normal lipid panel showing normal values of triglyercides, cholesterol, and lipid levels. A diabetic workup was negative. A d-dimer level in the ED was negative which rules out a lung pathology such as pulmonary embolism. With a negative workup, our "big bad ugly causes" have been ruled out. As we discussed, some of how you examine (the positional nature of your symptoms, and that your ribs were subtly more postured towards exhalation) would fit with this being rib dysfunction. The recent stressors you've been under easily would lend itself to this being anxiety related. Certainly both are very common mimickers of cardiac pain (with indigestion being the third, although this fit the least with your symptoms). Try the rib stretches we went over (open up your chest, stretch out arms, and hold in a deep breath) and continue to work with your counsellor and continue to work stress management as well. The pain behind your ear, given that you don't have other sinusitis symptoms and your ears didn't show signs of infection, was pretty unlikely to be mastoiditis (an infection of the mastoid sinus) -- it did appear consistent with tightness of the suboccipital muscles (the muscles that attach your head to your neck - a common area to get tight in the modern era, where we're frequently sitting over something with our head tilted forward). Putting pressure on them (especially something like slouching forward in a hard-backed chair, and following that pressure with moist heat) can help to start to loosen the area. If "self treatment" isn't getting the job done well enough, getting seen for further manipulative treatment with Dr Kelvin Hinton DO ([facility] office) would more than likely take care of the problem. The ulcer on your lip, given that it's been there for almost a week and is still getting worse, actually does appear to warrant a short course of antibiotics. To cover typical mouth bacteria, a course of augmentin has been sent to the pharmacy. If the area doesn't clear up after the course of antibiotics, definitely have it looked at. With your allergies, taking claritin D every day can actually be a potentially "hard on your body" medication --> specifically the pseudoephedrine in the D part. While it helps clear up congestion by constricting blood vessels, it can be a pretty potent stimulant and cause palpitations, elevations of blood pressure, etc. Because you're young and healthy, it appears that you're not really seeing much of any of those consequences right now (although indirectly it could act as an amplifier if last night's symptoms were brought on by anxiet y). It might be worthwhile to see how you do on just the claritin without the D, or change gears entirely and give a trial to a steroid nasal spray (generic flonase, for instance) as studies strongly suggest that the nasal steroids are probably the best "stand alone" treatment for chronic nasal allergies. Definitely have your daughter email me about shadowing. We love having pre-meds hang around, and being able to help encourage another D.O. would be a good thing! Prescriptions: New amoxicillin-pot clavulanate [Augmentin] 875-125 mg tablet 1 tab PO BID Qty: 10 RF: 0 Continued multivitamin [Multiple Vitamins] Tablet 1 tab PO DAILY RF: 0 loratadine-pseudoephedrine [Claritin-D 24 Hour] 10-240 mg Tablet Extended Release 24 Hr 1 tab PO DAILY PRN (Reason: Allergy Symptoms) RF: 0 calcium carbonate-vitamin D3 [Calcium 600 + D(3)] 600 mg(1,500mg) -400 unit Tablet 1 tab PO DAILY RF: 0 Stand-Alone Forms: Call Back Authorization, My [facility], Work/School Release (Inpt) Krames/Other Patient Handouts: Heart Risk, Heart Attack Warning Signs Discharge Orders: Discharge Order (Routine); Ordered 11/21/18 Ordered By: Shawn Cabrera Admission Data Admit Date/Time: 11/21/18 04:40 Attending Provider: Bradford Mann Admit Provider: Nelson Arechiga Primary Care Provider: Pedro Pablo Blanton Other Providers: Nelson Arechiga Service: Telemetry Other Interventions: Discharge Summary Assessment (RN) Last Done: 11/21/18 16:41 DC Date/Time DO NOT enter until pt leaves facility: 11/21/18 17:01 Supervising Physician Co-Signing Physician Notes I personally examined the patient and verified all mayers points of history and exam, discussed case, and agree with decision making with Dr Cabrera. Feeling okay, although her chest pain persists. His left upper and goes around to her back, it does feel like a heavy pressure through her chest. She also notes that she was going to see her PCP today for pain behind her left ear, and a lip ulcer that seems to be worsening after having bit her lip 5 days ago Vitals noted, in general she is awake alert oriented x3 pleasant no distress. HEENT normal cephalic atraumatic mucous members moist. Breathing is unlabored no accessory muscle use good effort. Skin shows no rashes no pallor or icterus. Musculoskeletal exam shows left sided ribs slightly exhaled compared to the right, it is tender but definitely not reproducible of her symptoms. She does not seem to have any discrete mastoid tenderness but is tender in the suboccipital region quite significantly. Her tympanic membranes are mildly retracted bilaterally but there is no effusions or erythema etc. She is a fairly large extremely tender somewhat swollen ulceration of her lip, there is no fluctuation though and no exudate. Chest painMI ruled out by negative enzymes and EKGs, unstable angina appears exceedingly unlikely by low risk and reassuring stress echo. D-dimer negative and low resting heart rate effectively rule out PE. Seems most likely to be rib dysfunction versus anxiety. We discussed both. Taught her stretches for rib dysfunction, and she is actively seeing counseling and modifying life stresses as far as anxiety. She seems to have very good insight. She is stable for home. Left-sided headacheappears to be suboccipital driven. Gentle OMT done, taught patient "self OMT." Given lack of other sinusitis symptoms, and given no tympanic membrane findings, mastoiditis seems extremely unlikely Lip ulcerappears to be worsening in spite of it being there for about 5 days, is exquisitely swollen and tender, short course of antibiotics to evacuate mouth holli. Stable for home.
== END 2018-11-21 17:01 | disposition home or self-care (01) ==
LOC: ED 01:54 → 2N 01:54 → SUATTDRO 04:40 → 2N 05:02